=== PATIENT | male | born 1965 | race American Indian/Alaskan Native ===

== ENCOUNTER 2021-05-29 11:48 | Outpatient (CLI) | payer OTHER ==
--- NOTE | 2021-05-29 13:17 | XRay Report ---
RIGHT KNEE 2 VIEW(S) INDICATION / CLINICAL INFORMATION: RIGHT KNEE PAIN COMPARISON: None available. FINDINGS: BONES / JOINT(S): No acute fracture or dislocation. There is a well-corticated ossific fragment in th e proximal patellar tendon which may represent old patellar avulsion fracture versus heterotopic ossi fication. There is partially visualized cortical thickening of the distal diaphysis of the right femu r and dedicated radiographs of the femur is recommended for further evaluation. SOFT TISSUES: No significant abnormality. ADDITIONAL FINDINGS: None. Signer Name: Eyal Saunders MD Signed: 05/29/2021 1:13 PM Workstation Name: [id number]
--- NOTE | 2021-05-29 14:35 | XRay Report ---
RIGHT HIP 2 VIEW(S) INDICATION / CLINICAL INFORMATION: RIGHT HIP PAIN COMPARISON: None available. 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 Th ere is deformity of the right acetabulum Partial fusion of the medial aspect of the hip joint. This may be congenital. This may be related to prior trauma. No acute fracture is seen. SOFT TISSUES: No significant abnormality. ADDITIONAL FINDINGS: None. Signer Name: Ric Grant MD Signed: 05/29/2021 2:31 PM Workstation Name: [id number]
== END 2021-05-29 11:49 | disposition home or self-care (01) ==
LOC: XRAY 11:48
PROVIDERS: ATTEND Internal Medicine
DX: M16.11 Unilateral primary osteoarthritis, right hip (principal); M25.561 Pain in right knee